=== PATIENT | female | born 1975 | race Caucasian/White ===

== ENCOUNTER → 2021-02-11 | Outpatient (CLI) | payer OTHER ==
[~2021-02-11] MED LIST: FLONASE 0.05%50 MCG NASAL; NORCO5 PO; ZYRTEC10 M5 PO
== END ==
LOC: LAB 14:40
PROVIDERS: ATTEND Student in an Organized Health Care Education/Training Program
DX: Z01.812 Encounter for preprocedural laboratory examination (principal); Z20.822 Contact with and (suspected) exposure to COVID-19

== ENCOUNTER 2021-02-13 08:17 | Day surgery (SDC) | payer OTHER ==
[~2021-02-13] VITALS: Ht 167.6 cm; Wt 59.0 kg
--- NOTE | ~2021-02-13 | O ---
[facility] [place] [address] OPERATIVE REPORT Name: LEONEL YEPEZ Room #: 150-2 [facility] M..#: [id number] Admission: 02/13/21 Attend Phys: Hay Garrido MD Discharge: Date of : 73 Report #: [id number] THIS REPORT FOR: cc: Joon Buckner Herbert E. DO Abraham, Scott M. MD ~ DOC #: [id number] Hay Garrido MD DATE OF SERVICE: 02/13/2021 PREOPERATIVE DIAGNOSIS: Left knee medial meniscus tear. POSTOPERATIVE DIAGNOSES: 1. Left knee medial meniscus tear. 2. Pathologic medial plica, left knee. SURGEON: Hay Garrido MD. REQUISITION APPROVER: Promise Sharp. ANESTHESIOLOGIST: LMMohinder. TOURNIQUET TIME: Approximately 15 minutes. COMPLICATIONS: None. SPECIMENS: None. CONDITION UPON LEAVING THE OPERATING ROOM: Stable. INDICATIONS FOR PROCEDURE: The patient is a 45-year-old female who has had medial-sided left knee pain. She had an MRI scan, found to have a tear at the junction of the posterior horn and body of the medial meniscus. After discussion with her, she elected for left knee arthroscopy with partial medial meniscectomy and debridement as needed. DESCRIPTION OF PROCEDURE: Risks, benefits, alternatives, complications were discussed in detail with the patient including but not limited to risk of anesthesia, risk of damage to nerves, arteries, blood vessels, risk for infection, bleeding, risk for continued knee pain and need for reoperation. Informed consent was obtained from the patient. Left knee was appropriately marked in the preoperative holding area. IV Ancef was given for preoperative antibiotics. She was brought to the operating room and placed in the supine position on the operating table. LMA anesthesia was induced without complication. Tourniquet was placed on the left thigh. Left lower extremity was prepped and draped in normal sterile fashion. Timeout was performed [address] [id number] OPERATIVE REPORT Name: LEONEL YEPEZ Room #: 150-2 [facility] M..#: [id number] Admission: 02/13/21 Attend Phys: Hay Garrido MD Discharge: Date of : 73 Report #: [id number] properly identifying the patient and procedure as well as the instrumentation. All in the operating room were in agreement. Left lower extremity was exsanguinated, tourniquet was inflated. Tourniquet time was 50 minutes. Standard anterolateral portal was established with 11 blade through the skin. Arthroscope was introduced into the patellofemoral compartment, diagnostic arthroscopy was undertaken. Patellofemoral compartment was visualized and found to be without pathology. Medial gutter was visualized and found to have a thickened medial plica. Medial compartment was visualized and medial portal was established under arthroscopic visualization. Probe was introduced in the medial compartment and there was noted to be a radial type tear at the junction of the posterior horn and body of the medial meniscus with an unstable flap. This was trimmed back to a stable rim with an arthroscopic biter and smoothed back with a shaver. Scope was placed in the femoral notch, found to have an intact anterior cruciate ligament. Lateral compartment was visualized and found to be without pathology. The scope was then placed back in the patellofemoral compartment and the medial plica was excised with an oscillating shaver. All fluid was drained from the knee. Knee was injected with 10 mL of 0.5% Marcaine. Incision was closed with 3-0 nylon. Soft dressing of Adaptic, 4 x 4's Webril, Roberto wrap were applied. The patient tolerated this procedure well and went to recovery room under care of anesthesia postoperatively. MD ADOLFO Thornton/KDA By: [id number] Hay Garrido MD /nt
[~2021-02-13 08:17] MED LIST changes: -NORCO5 PO
[2021-02-13 09:30] VITALS: BP 132/81
[2021-02-13] MEDS ORDERED: NORCO5 PO (11:22)
[2021-02-13 11:43] VITALS: BP 132/81
== END 2021-02-13 12:50 | disposition home or self-care (01) ==
LOC: TBA 08:17 → OR 08:17 → TBA 08:18 → OR 11:58
PROVIDERS: ATTEND Orthopaedic Surgery
DX: M25.562 Pain in left knee (principal); S83.242A Other tear of medial meniscus, current injury, left knee, initial encounter; M67.52 Plica syndrome, left knee; Z98.890 Other specified postprocedural states; Z79.899 Other long term (current) drug therapy; Z90.49 Acquired absence of other specified parts of digestive tract; X58.XXXA Exposure to other specified factors, initial encounter; Y93.89 Activity, other specified; Y92.89 Other specified places as the place of occurrence of the external cause; Y99.8 Other external cause status
CPT/HCPCS: 50010; 50101; 50405; 56526; 57103; 57179; 58577; 58589; 62110; 62900; 70005